=== PATIENT | male | born 2000 | race African-American/Black ===

== ENCOUNTER 2023-10-27 20:03 | Emergency (ER) | payer OTHER ==
[~2023-10-27] VITALS: Ht 170.2 cm; Wt 65.4 kg
[2023-10-27 20:16] VITALS: TEMP 98.2
[2023-10-27 21:57] VITALS: BP 136/67; PULSE 74; RESP 19
[2023-10-27 22:56] LABS: BASOPHILS % (AUTO) 0.9 % (0.0-2.0); EOSINOPHILS % (AUTO) 0.5 % (1.0-6.0); HEMATOCRIT 41.1 % (41-53); LYMPHOCYTES % (AUTO) 37.1 % (22.0-44.0); MEAN CORPUSCULAR HEMOGLOBIN 32.2 pg (26.0-34.0); MEAN CORPUSCULAR VOLUME 95 fL (80-100); MONOCYTES # (AUTO) 0.5 K/uL (0.1-1.0); MONOCYTES % (AUTO) 6.7 % (2.0-9.0); NEUTROPHILS # (AUTO) 4.4 K/uL (1.8-7.7); NEUTROPHILS % (AUTO) 54.8 % (40.0-70.0); PLATELET COUNT (AUTO) 228 K/uL (150-450); RED BLOOD CELL COUNT(AUTO) 4.34 MIL/uL (4.50-5.90); RED CELL DISTRIBUTION WIDTH 14.1 % (11.5-14.5)
[2023-10-27 23:05] LABS: ANION GAP 9 mmol/L (8-16); CALCIUM, TOTAL 9.5 mg/dL (8.8-10.5); CARBON DIOXIDE 29 mmol/L (22-29); CHLORIDE 104 mmol/L (98-107); CREATININE 1.08 mg/dL (0.60-1.30); GLOMERULAR FILTR. RATE CALC > 60 mL/min (>60); GLUCOSE,RANDOM 90 mg/dL (70-110); POTASSIUM 3.9 mmol/L (3.5-5.1); SODIUM SERUM 142 mmol/L (136-145); UREA NITROGEN, BLOOD 15 mg/dL (7-18)
== END 2023-10-27 23:38 | disposition home or self-care (01) ==
LOC: EMS 20:05
DX: R42 Dizziness and giddiness (principal)
CPT/HCPCS: 80048; 85025; 99283

== ENCOUNTER 2024-02-13 21:37 | Emergency (ER) | payer OTHER ==
[~2024-02-13] VITALS: Ht 170.2 cm; Wt 65.0 kg
[2024-02-13 21:40] VITALS: BP 121/60; PULSE 82; RESP 18
== END 2024-02-14 02:14 | disposition left against medical advice (07) ==
LOC: EMS 21:41
DX: M25.562 Pain in left knee (principal); Z53.21 Procedure and treatment not carried out due to patient leaving prior to being seen by health care provider
CPT/HCPCS: 99281; Z7502